=== PATIENT | male | born 1980 ===

== ENCOUNTER 2018-10-25 03:25 | Emergency (ER) | payer SELFPAY ==
[2018-10-25] MEDS ORDERED: Sodium Chloride 0.9% 1,000 ML IV ONE (03:47)
[2018-10-25 04:01] VITALS: O2SAT 98
[2018-10-25 04:05] LABS: BASO % 0.4 % (0.0-2.0); EOS # 0.1 K/uL (0.0-0.7); EOS % 1.9 % (0.0-4.0); HEMOGLOBIN 15.1 g/dL (12.0-18.0); LYMPH # 2.8 K/uL (1.0-4.3); LYMPH % 57.8 % (20.0-40.0); MEAN CELL VOLUME 84.4 fL (80.0-94.0); MEAN CORPUSCULAR HEMOGLOBIN 28.1 pg (27.0-31.0); MEAN CORPUSCULAR HGB CONC 33.3 g/dL (33.0-37.0); MEAN PLATELET VOLUME 7.9 fL (7.2-11.7); MONO # 0.5 K/uL (0.0-0.8); MONO % 10.6 % (0.0-10.0); NEUT # 1.4 K/uL (1.8-7.0); NEUT % 29.3 % (50.0-75.0); NRBC % 0.3 % (0.0-2.0); RBC 5.38 Mil/uL (4.40-5.90); RED CELL DISTRIBUTION WIDTH 12.8 % (11.5-14.5); WHITE BLOOD COUNT 4.9 K/uL (4.8-10.8)
[2018-10-25 04:09] LABS: URINE BACTERIA RARE (<OCC); URINE BILIRUBIN NEGATIVE (NEGATIVE); URINE BLOOD 1+ (NEGATIVE); URINE CLARITY Clear (Clear); URINE COLOR Colorless (YELLOW); URINE GLUCOSE (UA) NORMAL (Normal); URINE LEUKOCYTE ESTERASE NEG Leu/uL (Negative); URINE PROTEIN NEGATIVE (NEGATIVE); URINE UROBILINOGEN NORMAL mg/dL (0.2-1.0)
[2018-10-25 04:18] LABS: ALB/GLOB RATIO 1.5 (1.0-2.1); ALBUMIN 4.5 g/dL (3.5-5.0); ALT/SGPT 61 U/L (21-72); AST/SGOT 42 U/L (17-59); BLOOD UREA NITROGEN 13 mg/dL (9-20); CALCIUM 8.7 mg/dl (8.6-10.4); GFR NON-AFRICAN AMERICAN > 60; LIPASE 86 U/L (23-300)
[2018-10-25 04:29] LABS: B-TYPE NATRIURETIC PEPTIDE 24.1 pg/mL (0-450)
--- NOTE | 2018-10-25 04:47 | C.PDOC ---
History Of Present Illness 38 y/o male presents to the ED complaining of crampy bilateral upper abdominal pain. Patient notes the pain is causing him to feel short of breath. Associated with some nausea but no vomiting. Otherwise he denies any diarrhea, fevers, or chills. Patient reports having hard stools this week. Admits he has been straining to have bowel movements, noticing occasional blood-tinged stool. Patient works at a [email or web address] stand, admits to low water intake and minimal exercise. Time Seen by Provider: 10/25/18 03:37 Chief Complaint (Nursing): Shortness Of Breath History Per: Patient History/Exam Limitations: no limitations Onset/Duration Of Symptoms: Days Current Symptoms Are (Timing): Still Present Past Medical History Reviewed: Historical Data, Nursing Documentation, Vital Signs Vital Signs: Last Vital Signs Temp 98.6 F 10/25/18 03:34 Pulse 72 10/25/18 03:34 Resp 18 10/25/18 03:34 BP 136/89 10/25/18 03:34 Pulse Ox 98 10/25/18 03:34 - Medical History PMH: Denies: Chronic Kidney Disease Surgical History: Hernia Repair Family History: States: Unknown Family Hx - Social History Hx Tobacco Use: Yes (1 PPD) Hx Alcohol Use: Yes Hx Substance Use: No - Immunization History Hx Tetanus Toxoid Vaccination: No Hx Influenza Vaccination: No Hx Pneumococcal Vaccination: No Review Of Systems Constitutional: Negative for: Fever, Chills, Sweats Eyes: Negative for: Vision Change Cardiovascular: Negative for: Palpitations Respiratory: Positive for: Cough, Shortness of Breath. Negative for: Pleuritic Pain Gastrointestinal: Positive for: Nausea, Abdominal Pain (upper b/l), Constipation. Negative for: Vomiting, Diarrhea Musculoskeletal: Negative for: Back Pain Skin: Negative for: Rash Neurological: Negative for: Weakness, Dizziness Physical Exam - Physical Exam Appears: Non-toxic, No Acute Distress, Other (Appears older than stated age) Skin: Normal Color, Warm Head: Atraumatic, Normacephalic Eye(s): bilateral: Normal Inspection, PERRL, EOMI Oral Mucosa: Moist Neck: Normal ROM Chest: Symmetrical, No Tenderness Cardiovascular: Rhythm Regular, No Murmur Respiratory: Normal Breath Sounds, No Accessory Muscle Use, No Wheezing Gastrointestinal/Abdominal: Bowel Sounds (dull to percussion throughout), Soft, No Tenderness, No Distention Back: Normal Inspection Extremity: Bilateral: Atraumatic, Normal ROM (x4) Neurological/Psych: Oriented x3 ED Course And Treatment - Laboratory Results Result Diagrams: 10/25/18 03:50 10/25/18 03:50 Lab Interpretation: Normal (trop neg.) ECG: Interpreted By Me ECG Rhythm: Sinus Rhythm ECG Interpretation: Normal Rate From EC O2 Sat by Pulse Oximetry: 98 (RA) Pulse Ox Interpretation: Normal - Radiology CXR: Interpreted by Me CXR Interpretation: Yes: No Acute Disease - Other Rad abd x 2 X-Ray: Interpreted by Me (+FOS) Reevaluation Time: 04:48 Reassessment Condition: Improved Medical Decision Making Medical Decision Making: Impression: Epigastric pain with SOB, r/o ACS, r/o constipation Plan: --CMP, CBC, cardiac enzymes --EKG --Abd x-ray --UA --IV fluids, x 1 L --4 mg IV Zofran --40 mg IV protonix --Reassess Labs reviewed no ACS X-ray viewed by me: + abd colic/Constip Patient counseled regarding dx of constipation. Will treat with PO mag citrate in the ED. Patient stable for d/c home Disposition Doctor Will See Patient In The: Office Counseled Patient/Family Regarding: Studies Performed, Diagnosis - Disposition [facility]errals: [facility] [Outside] [facility] [place] [Outside] [facility] [Outside] Disposition: HOME/ ROUTINE Disposition Time: 04:48 Condition: GOOD Additional Instructions: evaluation normal except for significant constipation Drink entire bottle of laxative- Mag Citrate- now and re-evaluate your abdominal discomfort after using the bathroom 2-3 times diet and exercise changes 7 fresh fruits and vegetables daily. occasional laxatives as above, as needed outpatient follow-up to consider colonoscopy as required. Instructions: Constipation in Adults Forms: SOAK ([employer]) (Mal[place]ian) - Clinical Impression Clinical Impression: Abdominal pain, colicky - Scribe Statement The provider has reviewed the documentation as recorded by the Marina Umana Provider Attestation: All medical record entries made by the Jvibe were at my direction and personally dictated by me. I have reviewed the chart and agree that the record accurately reflects my personal performance of the history, physical exam, medical decision making, and the department course for this patient. I have also personally directed, reviewed, and agree with the discharge instructions and disposition.
[2018-10-25] MEDS ORDERED: Magnesium Citrate Oral SOL (300 ml) PO ONE (04:48)
[2018-10-25 05:00] VITALS: BP 123/75; PULSE 67; RESP 18; TEMP 97.4
[2018-10-25] MEDS ORDERED: Magnesium Citrate Oral SOL (300 ml) ONE (05:00)
--- NOTE | 2018-10-25 08:13 | RAD ---
Date of service: 10/25/2018 PROCEDURE: Radiographs of the chest and abdomen (obstructive series) HISTORY: abd pain COMPARISON: No prior. TECHNIQUE: AP radiograph of the chest, with upright and supine radiographs of the abdomen. FINDINGS: CHEST: Lungs: Clear. Cardiovascular: Normal size heart. No pulmonary vascular congestion. No aortic atherosclerotic calcification present Pleura: No pleural fluid. No pneumothorax. Other findings: None. ABDOMEN AND PELVIS: Bowel: Unremarkable bowel gas pattern. No evidence of mechanical obstruction. Free air: None. Bones: Unremarkable. Other findings: A small calcification is appreciate the inferior left pelvic soft tissues suspicious for probable phlebolith urolith less likely. No suspicious intra-abdominal calcifications identified bilaterally. IMPRESSION: Unremarkable radiographs of chest and abdomen. No evidence of mechanical bowel obstruction.
--- NOTE | 2018-10-26 11:47 | CARD ---
APPROVED REPORT Date of service: 10/25/2018 EKG Measurement Heart [id number] NM [id number] <Conclusion> Normal sinus rhythm Normal ECG
== END 2018-10-25 05:13 | disposition home or self-care (01) ==
LOC: C.ER 03:25
DX: R10.12 Left upper quadrant pain (principal); R10.11 Right upper quadrant pain
CPT/HCPCS: 74022; 80053; 81001; 83690; 83880; 84484; 85025; 93005; 96361; 96374; 96375; 99285; C9113; J2405; J7030